=== PATIENT | male | born 1995 | race American Indian/Alaskan Native ===

== ENCOUNTER 2018-08-09 22:52 | Emergency (ER) | payer SELFPAY ==
--- NOTE | 2018-08-10 00:27 | Ultrasound Report ---
FINAL REPORT PROCEDURE: US TESTICULAR DOPPLER COMP TECHNIQUE: Real-time ruvalcaba-scale and color flow Doppler sonography in multiple planes of the scrotum, testicles, and epididymes was performed. Velocity spectral waveform analysis Doppler imaging of the arterial inflow and venous outflow of the testicles was performed with image documentation. CPT 40084 and 81013 HISTORY: swollen testicles COMPARISON: No prior studies are available for comparison. FINDINGS: RIGHT TESTICLE: Size: 5.1 x 2.1 x 4.1 cm . Appearance: Normal size and echotexture . Arterial blood flow: Normal spectral waveforms, flow velocities and color flow images.. Venous blood flow: Normal spectral waveforms and color flow images. Right epididymis: Normal size and echotexture . Hydrocele: None . LEFT TESTICLE Size: 4 x 1.9 x 4.4 cm . Appearance: Normal size and echotexture . Arterial blood flow: Normal spectral waveforms, flow velocities and color flow images.. Venous blood flow: Normal spectral waveforms and color flow images. Leftepididymis: Normal size and echotexture . Hydrocele: Small inferior hydrocele. IMPRESSION: Both testicles have normal size with appropriate blood flow. There is a small hydrocele near the lower left testicle.
--- NOTE | 2018-08-10 04:20 | Emergency Department Report ---
ED Male HPI - General Chief complaint: Urogenital-Male Stated complaint: POSSIBLE UTI Time Seen by Provider: 08/10/18 04:17 Source: patient, RN notes reviewed Mode of arrival: Ambulatory Limitations: No Limitations - History of Present Illness Initial comments: This is a 23-year-old gentleman, not known to this provider, identifies is heterosexual, who presents to the emergency room with dysuria 1 day. Denies testicular pain to this provider. Reports numerous recent sexual partners, vaginal intercourse, some with condoms, somewhat now. Denies other complaints or symptoms. Reports this has never happened to him before. MD Complaint: dysuria -: Sudden, days(s) (1) Radiation: none Severity: moderate Quality: burning Consistency: intermittent Improves with: rest Worsens with: urination new sexual partner discharge, dysuria. denies: swelling, mass, rash, urinary retention, blood in urine, fever, nausea/vomiting, incontinence - Related Data Sexually active: Yes Previous Rx's Medication Instructions Recorded Last Taken Type Nitrofurantoin [place]/M-Cryst 100 mg PO Q12HR #14 capsule 08/10/18 Unknown Rx [Macrobid CAP] Phenazopyridine [Pyridium] 100 mg PO TID PRN #6 tab 08/10/18 Unknown Rx Allergies Allergy/AdvReac Type Severity Reaction Status Date / Time No Known Allergies Allergy Unverified 08/09/18 22:57 ED Review of Systems ROS: Stated complaint: POSSIBLE UTI Other details as noted in HPI Constitutional: denies: fever ENT: denies: throat pain Respiratory: denies: cough Cardiovascular: denies: chest pain Gastrointestinal: denies: abdominal pain Genitourinary: dysuria. denies: testicular pain, testicular mass Musculoskeletal: denies: back pain Psychiatric: anxiety ED Past Medical Hx - Past Medical History Previous Medical History?: No - Surgical History Past Surgical History?: No - Social History Smoking Status: Current Every Day Smoker Substance Use Type: Alcohol, Marijuana - Medications Home Medications: Home Medications Medication Instructions Recorded Confirmed Last Taken Type Nitrofurantoin [place]/M-Cryst 100 mg PO Q12HR #14 capsule 08/10/18 Unknown Rx [Macrobid CAP] Phenazopyridine [Pyridium] 100 mg PO TID PRN #6 tab 08/10/18 Unknown Rx ED Physical Exam - General Limitations: No Limitations General appearance: alert, anxious - Head Head exam: Present: atraumatic, normocephalic - Eye Eye exam: Present: normal appearance, EOMI - ENT ENT exam: Present: normal exam, normal orophraynx, mucous membranes moist, normal external ear exam - Neck Neck exam: Present: normal inspection, full ROM. Absent: tenderness, meningismus - Respiratory Respiratory exam: Present: normal lung sounds bilaterally. Absent: respiratory distress - Cardiovascular Cardiovascular Exam: Present: regular rate, normal rhythm, normal heart sounds. Absent: bradycardia, tachycardia, irregular rhythm, systolic murmur, diastolic murmur, rubs, gallop - GI/Abdominal GI/Abdominal exam: Present: soft. Absent: distended, tenderness, guarding, rebound, rigid, pulsatile mass - Rectal Rectal exam: Present: deferred - exam: Present: normal inspection, other (chaperoned by nurse GAVIN WHITLOCK). Absent: testicular tenderness External exam: Present: normal external exam, other (there is no testicular tenderness. There is normal testicular lie bilaterally. There is normal cremasteric reflex bilaterally.) - Extremities Exam Extremities exam: Present: normal inspection, full ROM, other (2+ pulses noted in the bilateral upper, lower extremities. Compartments soft. No long bony tenderness. The pelvis is stable.). Absent: pedal edema, joint swelling, calf tenderness - Back Exam Back exam: Present: normal inspection, full ROM. Absent: tenderness, CVA tenderness (R), paraspinal tenderness - Neurological Exam Neurological exam: Present: alert, oriented X3, CN II-XII intact, normal gait, other (Extraocular movements intact. Tongue midline. No facial droop. Facial sensation intact to light touch in the V1, V2, V3 distribution bilaterally. 5 and 5 strength in 4 extremities.. Sensation is intact to light touch in 4 extremities.). Absent: motor sensory deficit - Psychiatric Psychiatric exam: Present: anxious - Skin Skin exam: Present: warm, dry, intact, normal color. Absent: rash ED Course Vital Signs 08/09/18 08/09/18 08/10/18 23:04 23:06 03:57 Temperature 98.8 F 98.8 F 98.4 F Pulse Rate 84 60 Respiratory 18 18 15 Rate Blood Pressure 128/88 Blood Pressure 123/76 [Left] O2 Sat by Pulse 98 99 Oximetry ED Medical Decision Making - Lab Data Vital Signs 08/09/18 08/09/18 08/10/18 23:04 23:06 03:57 Temperature 98.8 F 98.8 F 98.4 F Pulse Rate 84 60 Respiratory 18 18 15 Rate Blood Pressure 128/88 Blood Pressure 123/76 [Left] O2 Sat by Pulse 98 99 Oximetry Lab Results 08/09/18 Range/Units Unknown Urine Color Yellow (Yellow) Urine Turbidity Cloudy (Clear) Urine pH 5.0 (5.0-7.0) Ur Specific [place] 1.030 (1.003-1.030) Urine Protein 30 mg/dl (Negative) mg/dL Urine Glucose (UA) Neg (Negative) mg/dL Urine Ketones Neg (Negative) mg/dL Urine Blood Neg (Negative) Urine Nitrite Neg (Negative) Urine Bilirubin Neg (Negative) Urine Urobilinogen 2.0 (<2.0) mg/dL Ur Leukocyte Esterase Lg (Negative) Urine WBC (Auto) > 182.0 H (0.0-6.0) /HPF Urine RBC (Auto) 14.0 (0.0-6.0) /HPF U Epithel Cells (Auto) 1.0 (0-13.0) /HPF Urine Bacteria (Auto) 1+ (Negative) /HPF Urine WBC Clumps 2+ /HPF Urine Mucus 3+ /HPF - Radiology Data Radiology results: report reviewed, image reviewed Print Report Referring Physician: ELIANE WELSH Patient Name: BRIDGER CHANG Date of : 1995 Sex: Male Report Date: 2018-08-10 Report Status: [place] [address] Ultrasound Report Signed Patient: BRIDGER CHANG MR#: [id number] : 1995 Acct:[id number] Age/Sex: 23 / M ADM Date: 08/09/18 Loc: ED Attending Dr: Ordering Physician: ELIANE WELSH MD Date of Service: 08/09/18 Procedure(s): US testicular doppler comp Accession Number(s): [id number] cc: ELIANE WELSH MD FINAL REPORT PROCEDURE: US TESTICULAR DOPPLER COMP TECHNIQUE: Real-time ruvalcaba-scale and color flow Doppler sonography in multiple planes of the scrotum, testicles, and epididymes was performed. Velocity spectral waveform analysis Doppler imaging of the arterial inflow and venous outflow of the testicles was performed with image documentation. CPT 69722 and 98469 HISTORY: swollen testicles COMPARISON: No prior studies are available for comparison. FINDINGS: RIGHT TESTICLE: Size: 5.1 x 2.1 x 4.1 cm . Appearance: Normal size and echotexture . Arterial blood flow: Normal spectral waveforms, flow velocities and color flow images.. Venous blood flow: Normal spectral waveforms and color flow images. Right epididymis: Normal size and echotexture . Hydrocele: None . LEFT TESTICLE Size: 4 x 1.9 x 4.4 cm . Appearance: Normal size and echotexture . Arterial blood flow: Normal spectral waveforms, flow velocities and color flow images.. Venous blood flow: Normal spectral waveforms and color flow images. Leftepididymis: Normal size and echotexture . Hydrocele: Small inferior hydrocele. IMPRESSION: Both testicles have normal size with appropriate blood flow. There is a small hydrocele near the lower left testicle. Transcribed By: [facility] Dictated By: JD ROONEY MD Electronically Authenticated By: JD ROONEY MD Signed Date/Time: 08/10/1826 DD/ TD/TT: 08/10/1825 - Medical Decision Making Differential diagnosis, including the not limited to: Cystitis, urethritis Assessment and plan: 23-year-old gentleman with probable urethritis versus cystitis. Has an unremarkable testicular examination. Testicular ultrasound was ordered prior to my evaluation and is unremarkable for acute disease. Patient will be treated empirically with ceftriaxone, azithromycin, and he will be discharged with Macrobid and Pyridium. STI precautions were reviewed with the patient. Critical care attestation.: If time is entered above; I have spent that time in minutes in the direct care of this critically ill patient, excluding procedure time. ED Disposition Clinical Impression: Urethritis Disposition: DC-01 TO HOME OR SELFCARE Is pt being admited?: No Does the pt Need Aspirin: No Condition: Stable Instructions: Nonspecific Urethritis in Men (ED) Additional Instructions: Cultures were sent today, and results will be available next 3-5 days. Please have your primary care doctor call the medical records department to obtain your culture results. Take the antibiotic therapy as directed. I recommend outpatient testing for sexually transmitted diseases, including hepatitis, syphilis and HIV. I also recommend that you abstain from sexual activity until you have completed your antibiotic therapy, a physician states that it is safe for you to resume sexual activity, and any partners that you have been sexually active with have been tested/treated/evaluated for sexual transmitted diseases. Please follow-up with physician within 7-10 days. I recommend that you return to the ER right away with worsening pain, migration of pain, intractable nausea/vomiting, inability tolerate liquid feeds. Referrals: [facility] [Provider Group] - 3-5 Days [facility] [Outside] - 3-5 Days Forms: STI Treatment and Prevention
[2018-08-10 04:51] LABS: Bacteria,Urine 1+ /HPF (Negative); Bilirubin,Urine NEG (Negative); Blood,Urine NEG (Negative); Color,Urine Yellow (Yellow); Mucus,Urine 3+ /HPF
[2018-08-10 04:57] LABS: WBC,Urine > 182.0 /HPF (0.0-6.0)
[2018-08-10] MEDS ORDERED: ROCEPHIN IM ONE (05:02)
[2018-08-10] MEDS ORDERED: XYLOCAINE 1% MPF 5 mL INFILTRATI ONE (05:02)
[2018-08-10] MEDS ORDERED: ZITHROMAX PO ONE (05:02)
[2018-08-10 05:43] VITALS: BP 124/76
== END 2018-08-10 05:42 | disposition home or self-care (01) ==
LOC: ED 22:52
DX: N34.2 Other urethritis (principal); F41.9 Anxiety disorder, unspecified; F17.200 Nicotine dependence, unspecified, uncomplicated
CPT/HCPCS: 81001; 87086; 93975; 96372; 99284; J0696